=== PATIENT | male | born 1980 | race Caucasian/White ===

== ENCOUNTER 2016-12-04 | Outpatient (CLI) | payer OTHER | END 2016-12-04 14:23 | disposition critical access hospital (66) | CPT/HCPCS: A0425; A0433 ==

== ENCOUNTER 2016-12-04 14:25 | Inpatient (IN) | payer OTHER ==
[2016-12-04] MEDS ORDERED: VECURONIUM 10 MG VIAL ONE ×2 (14:31→15:08)
[2016-12-04] MEDS ORDERED: SODIUM CHLORIDE 0.9% 1,000 ML IV ONE (14:32)
[2016-12-04] MEDS ORDERED: VECURONIUM 10 MG VIAL IVP STA ×3 (14:32→15:34)
[2016-12-04] MEDS ORDERED: LORazepam 2 MG/ML SYRINGE ONE ×2 (14:57→15:31)
[2016-12-04] MEDS ORDERED: LORazepam 2 MG/ML SYRINGE IVP STA ×3 (14:57→15:34)
[2016-12-04] MEDS ORDERED: WATER FOR INJECTION,STERILE 10 ML ONE (15:09)
[2016-12-04] MEDS ORDERED: ONDANSETRON 4 MG/2 ML VIAL IVP PRN (15:58)
[2016-12-04] MEDS ORDERED: HYDROmorphone 1 MG/ML SYRINGE IVP PRN (15:58)
[2016-12-04] MEDS ORDERED: ONDANSETRON ODT 4 MG TABLET TL PRN (15:58)
[2016-12-04] MEDS: PROPOFOL 1000 MG/100 ML 100 ML IV SCH ×2 (16:13→21:24)
[2016-12-04] MEDS ORDERED: PROPOFOL 200 MG/20 ML VIAL IVP STA (16:18)
[2016-12-04] MEDS: SODIUM CHLORIDE 0.9% 1,000 ML IV SCH ×2 (17:48→23:54)
[2016-12-04] MEDS: PANTOPRAZOLE 40 MG VIAL IVP SCH (17:48)
[2016-12-04] MEDS ORDERED: SODIUM CHLORIDE INHALATION 3 ML NEB ONE (21:28)
[2016-12-05] MEDS: PROPOFOL 1000 MG/100 ML 100 ML IV SCH ×2 (03:34→19:43)
[2016-12-05] MEDS: SODIUM CHLORIDE FLUSH 0.9% 10 ML SYRINGE IVP SCH ×4 (03:35→22:58)
[2016-12-05] MEDS: SODIUM CHLORIDE 0.9% 1,000 ML IV SCH ×2 (03:36→18:18)
[2016-12-05] MEDS: PANTOPRAZOLE 40 MG VIAL IVP SCH (08:25)
[2016-12-05] MEDS: SODIUM CHLORIDE FLUSH 0.9% 10 ML SYRINGE IVP PRN (08:26)
[2016-12-05] MEDS: SUCRALFATE 1 GM/10 ML UDC PO SCH ×2 (16:30→23:01)
[2016-12-05] MEDS ORDERED: PIPERACILLIN/TAZOBACTAM 3.375 GM in SODIUM CHLORIDE 0.9% MINIBAG 100 ML IV ONE (18:00)
[2016-12-05] MEDS: ACETAMINOPHEN 1,000 MG/100 ML 100 ML IV SCH ×2 (18:10→23:47)
[2016-12-05] MEDS: SCOPOLAMINE PATCH TOP SCH (18:18)
[2016-12-05] MEDS: PIPERACILLIN/TAZOBACTAM 3.375 GM in SODIUM CHLORIDE 0.9% MINIBAG 100 ML IV SCH (20:03)
[2016-12-05] MEDS: CHLORHEXIDINE GLUCONATE 15 ML UDC PO SCH (23:01)
[2016-12-06] MEDS: PIPERACILLIN/TAZOBACTAM 3.375 GM in SODIUM CHLORIDE 0.9% MINIBAG 100 ML IV SCH ×3 (04:22→19:44)
[2016-12-06] MEDS: PROPOFOL 1000 MG/100 ML 100 ML IV SCH (04:23)
[2016-12-06] MEDS: ACETAMINOPHEN 1,000 MG/100 ML 100 ML IV SCH ×4 (07:22→23:53)
[2016-12-06] MEDS: PANTOPRAZOLE 40 MG VIAL IVP SCH (07:22)
[2016-12-06] MEDS: SUCRALFATE 1 GM/10 ML UDC PO SCH ×4 (07:25→21:40)
[2016-12-06] MEDS: SODIUM CHLORIDE FLUSH 0.9% 10 ML SYRINGE IVP SCH ×3 (07:25→21:40)
[2016-12-06] MEDS ORDERED: SODIUM CHLORIDE INHALATION 3 ML NEB ONE (08:01)
[2016-12-06] MEDS ORDERED: oxyCODONE 5 MG TABLET PO PRN (10:16)
[2016-12-06] MEDS ORDERED: PHENOL THROAT SPRAY 177 ML MM PRN (10:17)
[2016-12-06] MEDS: CHLORHEXIDINE GLUCONATE 15 ML UDC PO SCH ×2 (10:34→20:45)
[2016-12-06] MEDS: SODIUM CHLORIDE 0.9% 1,000 ML IV SCH ×3 (11:20→21:47)
[2016-12-06] MEDS ORDERED: A & D OINTMENT 5 GM PACKET TOP ONE (12:19)
[2016-12-06] MEDS: SCOPOLAMINE PATCH TOP SCH (18:29)
[2016-12-07] MEDS: PIPERACILLIN/TAZOBACTAM 3.375 GM in SODIUM CHLORIDE 0.9% MINIBAG 100 ML IV SCH (03:57)
[2016-12-07] MEDS: ACETAMINOPHEN 1,000 MG/100 ML 100 ML IV SCH (05:48)
[2016-12-07] MEDS: SODIUM CHLORIDE FLUSH 0.9% 10 ML SYRINGE IVP SCH ×3 (05:50→22:08)
[2016-12-07] MEDS: LORazepam 2 MG/ML SYRINGE IVP PRN ×3 (05:52→19:20)
[2016-12-07] MEDS: SUCRALFATE 1 GM/10 ML UDC PO SCH ×4 (06:11→22:08)
[2016-12-07] MEDS: SODIUM CHLORIDE 0.9% 1,000 ML IV SCH (07:18)
[2016-12-07] MEDS: CHLORHEXIDINE GLUCONATE 15 ML UDC PO SCH ×2 (08:56→21:42)
[2016-12-07] MEDS: PANTOPRAZOLE 40 MG TABLET PO SCH (11:30)
[2016-12-07] MEDS: SODIUM CHLORIDE FLUSH 0.9% 10 ML SYRINGE IVP PRN ×2 (19:20→20:53)
[2016-12-07] MEDS ORDERED: HALOPERIDOL 5 MG/ML VIAL IM PRN (20:00)
[2016-12-07] MEDS ORDERED: HALOPERIDOL 5 MG/ML VIAL IVP ONE (20:46)
[2016-12-07] MEDS ORDERED: LORazepam 2 MG/ML SYRINGE IVP STA (20:47)
[2016-12-07] MEDS ORDERED: LORazepam 2 MG/ML SYRINGE IVP SCH (21:18)
[2016-12-07] MEDS ORDERED: HALOPERIDOL 5 MG/ML VIAL IVP SCH (21:19)
[2016-12-08] MEDS: SUCRALFATE 1 GM/10 ML UDC PO SCH (06:06)
[2016-12-08] MEDS: PANTOPRAZOLE 40 MG TABLET PO SCH (06:06)
[2016-12-08] MEDS: SODIUM CHLORIDE FLUSH 0.9% 10 ML SYRINGE IVP SCH (06:07)
[2016-12-08] MEDS ORDERED: POLYETHYLENE GLYCOL 3350 17 GM PACKET PO SCH (09:00)
[2016-12-08] MEDS: CHLORHEXIDINE GLUCONATE 15 ML UDC PO SCH (09:06)
== END 2016-12-08 10:42 | disposition short-term general hospital (02) | DRG 92 ==
DX: G93.1 Anoxic brain damage, not elsewhere classified (principal); K92.0 Hematemesis; T71.162A Asphyxiation due to hanging, intentional self-harm, initial encounter; F32.9 Major depressive disorder, single episode, unspecified; S10.81XA Abrasion of other specified part of neck, initial encounter; X83.8XXA Intentional self-harm by other specified means, initial encounter; Y93.89 Activity, other specified; Y92.143 Cell of prison as the place of occurrence of the external cause; Y99.8 Other external cause status; Y84.8 Other medical procedures as the cause of abnormal reaction of the patient, or of later complication, without mention of misadventure at the time of the procedure; Y92.230 Patient room in hospital as the place of occurrence of the external cause; Z91.89 Other specified personal risk factors, not elsewhere classified